=== PATIENT | male | born 1980 | race Caucasian/White ===

== ENCOUNTER 2016-09-05 03:06 | Emergency (ER) | payer MEDICARE, MEDICAID ==
--- NOTE | ~2016-09-05 | ER ---
PATIENT'S NAME: SARAH BROOKS [facility] AGE: 35 Y [address] ROOM: [place] [address] LOCATION: [facility] ADMIT DATE: 09/05/2016 ER/Outpatient Report DISCHARGE DATE: FAMILY PHYSICIAN: PHYSICIAN, NO ATTENDING PHYSICIAN: Tj Michel Admission date and time documented on the medical record. I saw the patient at 0325 hours. CHIEF COMPLAINT: Abdominal cramping and diarrhea. HISTORY OF PRESENT ILLNESS: This patient is a 35-year-old male who has had a 2-hour history of intermittent abdominal cramping. He has had intermittent diarrhea since 1700 hours yesterday afternoon. He has had about 12 diarrhea stools. No blood in his stool. No nausea or vomiting. No chest pain or shortness of breath. No fever, chills, sweats. No lightheadedness, dizziness, syncope or near syncope. No fall or trauma. No headache, eyes, ears, nose, throat, neck, or spine pain. Other than his recent illnesses; no other colds, coughs or flus. No urinary symptomatology. No joint or muscle swelling, redness, or pain. No skin eruptions or rash. No history of neuro changes, psych issues, endocrine problems. HOME MEDICATIONS: None. ALLERGIES: NONE. SOCIAL HISTORY: The patient smokes half a pack of cigarettes per day. Does drink about 3-4 beers a day. SIGNIFICANT PAST MEDICAL HISTORY: Tobacco and alcohol abuse, otherwise negative. OPERATIONS: Hand surgery. REVIEW OF SYSTEMS: All systems reviewed by me are negative with the exception of those discussed in the history of present illness. PHYSICAL EXAMINATION: PATIENT'S NAME: SARAH BROOKS [facility] AGE: 35 Y [address] ROOM: [place] [address] LOCATION: [facility] ADMIT DATE: 09/05/2016 ER/Outpatient Report DISCHARGE DATE: FAMILY PHYSICIAN: PHYSICIAN, NO ATTENDING PHYSICIAN: Tj Michel VITAL SIGNS: Pulse 80, respirations 18, blood pressure 128/89, O2 saturation on room air is 94%. HEAD: Normocephalic. EYES: Clear. EARS: Clear TMs bilaterally. NOSE AND THROAT: Clear. Mucous membranes moist. NECK: No nuchal rigidity. No thyromegaly or cervical lymphadenopathy. LUNGS: Clear. Good air flow. No rales, rhonchi, or wheezes. HEART: Regular. Pulses are palpable. ABDOMEN: Soft, generalized tenderness to palpation, worse in the lower abdomen. Hyperactive bowel tones. No organomegaly or abnormal mass palpable. No CVA tenderness. EXTREMITIES: Without peripheral edema, cyanosis, or deformity. Neurovascularly intact. SKIN: Clear, a little bit diaphoretic. EMERGENCY DEPARTMENT COURSE: I did start the patient on IV normal saline, gave him 2 L here in the emergency department. Gave him Bentyl 20 mg IM in the emergency room for abdominal cramping. Gave him Zofran 4 mg IV in the emergency room for nausea and vomiting. IMPRESSION: Intermittent diffuse abdominal cramping with diarrhea. PLAN: After the patient's IV fluids were in, the patient was dismissed home. Observation. Activity as tolerated. Clear liquid diet for 24 hours and advance diet as tolerated. Bentyl 20 mg 4 times a day for 5 days. Lomotil 2 orally 4 times a day as needed for diarrhea #24. Follow up with personal physician as needed. Discussion ensued with the patient's concerning my findings and recommendations, he understands. MD BARRY BUENO/shanika /[id number] d: 09/05/16 0435 t: 09/05/161809, OUTPATIENT REPORT
== END 2016-09-05 04:53 | disposition disaster alternative care site (69) ==
LOC: GMED 03:06
DX: R10.9 Unspecified abdominal pain (principal); R19.7 Diarrhea, unspecified; F10.10 Alcohol abuse, uncomplicated; F17.210 Nicotine dependence, cigarettes, uncomplicated; Z98.890 Other specified postprocedural states
CPT/HCPCS: J0500; J2405; J7030